=== PATIENT | male | born 1985 | race Caucasian/White ===

== ENCOUNTER 2016-09-19 02:21 | Emergency (ER) | payer BC, OTHER ==
[2016-09-19 02:22] VITALS: BMI 37.3
[2016-09-19 02:39] VITALS: TEMP 97.8; O2SAT 99
--- NOTE | 2016-09-19 02:50 | ED PDOC ---
Arrival/HPI - General Chief Complaint: Back Pain Time Seen by Provider: 09/19/16 02:32 Historian: Patient - History of Present Illness Narrative History of Present Illness (Text): 09/19/16 02:41 Aren Mccarthy is a 29 year old male, whose past medical history includes hypertension, who presents to the ED complaining of left lower back pain since yesterday. Patient states he slipped while carrying boxes at work yesterday afternoon. Patient states he did not fall but reports he felt a "pulling" sensation in his left lower back. Patient now complaining of pain to left lower back. Patient denies any weakness/numbness/tingling in the extremities, saddle paresthesias, urinary/bowel incontinence, nausea, vomiting, headache, or any other complaints. Time/Duration: Other (yesterday afternoon) Symptom Onset: Sudden Symptom Course: Unchanged Quality: Other (Pulling) Activities at Onset: Rest, Light Context: Home Past Medical History - Provider Review Nursing Documentation Reviewed: Yes - Infectious Disease Hx of Infectious Diseases: None - Tetanus Immunization Tetanus Immunization: Unknown - Cardiac Hx Cardiac Disorders: Yes Hx Hypertension: Yes - Pulmonary Hx Respiratory Disorders: No - Neurological Hx Neurological Disorder: No - HEENT Hx HEENT Disorder: No - Renal Hx Renal Disorder: No - Endocrine/Metabolic Hx Endocrine Disorders: No - Hematological/Oncological Hx Blood Disorders: No - Integumentary Hx Dermatological Disorder: No - Musculoskeletal/Rheumatological Hx Musculoskeletal Disorders: No Hx Falls: No - Gastrointestinal Hx Gastrointestinal Disorders: No - Genitourinary/Gynecological Hx Genitourinary Disorders: No - Psychiatric Hx Psychophysiologic Disorder: No Hx Depression: No Hx Emotional Abuse: No Hx Physical Abuse: No Hx Substance Use: No - Suicidal Assessment Feels Threatened In Home Enviroment: No Family/Social History - Physician Review Nursing Documentation Reviewed: Yes Family/Social History: Unknown Family HX Smoking Status: Never Smoked Hx Alcohol Use: No Hx Substance Use: No Hx Substance Use Treatment: No Allergies/Home Meds Allergies/Adverse Reactions: Allergies No Known Allergies Allergy (Verified 09/19/16 02:34) Home Medications: Home Meds Medication Instructions Recorded Confirmed Lisinopril/Hydrochlorothiazide 10 mg PO DAILY 09/02/15 09/19/16 [Lisinopril-Hctz 20-25 mg Tab] Review of Systems - Physician Review All systems were reviewed & negative as marked: Yes - Review of Systems Constitutional: Normal. absent: Fevers Eyes: Normal ENT: Normal Respiratory: Normal. absent: SOB, Cough Cardiovascular: Normal. absent: Chest Pain Gastrointestinal: Normal. absent: Abdominal Pain, Diarrhea, Nausea, Vomiting Genitourinary Male: Normal. absent: Dysuria, Frequency, Hematuria, Urinary Output Changes Musculoskeletal: Back Pain (+left lower back pain). absent: Neck Pain Skin: Normal. absent: Rash Neurological: Normal. absent: Headache, Dizziness Endocrine: Normal Hemo/Lymphatic: Normal Psychiatric: Normal Physical Exam Vital Signs Reviewed: Yes Vital Signs Temp Pulse Resp BP Pulse Ox 09/19/16 04:11 60 16 140/92 H 99 09/19/16 02:35 97.8 F 65 18 151/99 H 99 Temperature: Afebrile Blood Pressure: Normal Pulse: Regular Respiratory Rate: Normal Appearance: Positive for: Well-Appearing, Non-Toxic, Comfortable Pain Distress: None Mental Status: Positive for: Alert and Oriented X 3 - Systems Exam Head: Present: Atraumatic, Normocephalic Pupils: Present: PERRL Extroacular Muscles: Present: EOMI Conjunctiva: Present: Normal Mouth: Present: Moist Mucous Membranes Neck: Present: Normal Range of Motion Respiratory/Chest: Present: Clear to Auscultation, Good Air Exchange. No: Respiratory Distress, Accessory Muscle Use Cardiovascular: Present: Regular Rate and Rhythm, Normal S1, S2. No: Murmurs Abdomen: Present: Normal Bowel Sounds. No: Tenderness, Distention, Peritoneal Signs Back: Present: Paraspinal Tenderness (Mild left lumbar tenderness) Upper Extremity: Present: Normal Inspection. No: Cyanosis, Edema Lower Extremity: Present: Normal Inspection. No: Edema Neurological: Present: GCS=15, CN II-XII Intact, Speech Normal Skin: Present: Warm, Dry, Normal Color. No: Rashes Psychiatric: Present: Alert, Oriented x 3, Normal Insight, Normal Concentration Medical Decision Making ED Course and Treatment: 09/19/16 02:41 Impression: 30 year old male complaining of left lower back pain s/p injury yesterday. Differential Diagnosis included but are not limited to: muscle/lumbar strain vs. back pain Plan: -- Toradol -- Flexeril -- Reassess and disposition Prior Visits: Notes and results from previous visits were reviewed. On 09/02/2015, pt was seen in the Emergency department for chest pressure, shortness of breath, and headache. Pt was admitted to the hospital for further evaluation. Progress Notes: 09/19/16 03:50 On reevaluation the patient feels better and is in no acute distress. I have discussed the results and plan with the patient, who expresses understanding. Patient given the opportunity to ask question, all questions were answered and there is agreement with the plan to discharge the patient home. Patient is stable for discharge. Patient was instructed to follow up with physician/clinic in 1-2 days or return if symptoms persist/worsen or new concerning symptoms arise. - Medication Orders Current Medication Orders: Discontinued Medications Cyclobenzaprine HCl (Flexeril) 10 mg PO STAT STA Stop: 09/19/16 02:44 Last Admin: 09/19/16 02:57 Dose: 10 mg Ketorolac Tromethamine (Toradol) 30 mg IM ONCE ONE Stop: 09/19/16 02:44 Last Admin: 09/19/16 02:56 Dose: 30 mg - Scribe Statement The provider has reviewed the documentation as recorded by the Jessenia Auguste Provider Scribe Attestation: All medical record entries made by the Jayneibanastacio were at my direction and personally dictated by me. I have reviewed the chart and agree that the record accurately reflects my personal performance of the history, physical exam, medical decision making, and the department course for this patient. I have also personally directed, reviewed, and agree with the discharge instructions and disposition. Disposition/Present on Arrival - Present on Arrival Any Indicators Present on Arrival: No History of DVT/PE: No History of Uncontrolled Diabetes: No Urinary Catheter: No History of Decub. Ulcer: No History Surgical Site Infection Following: None - Disposition Have Diagnosis and Disposition been Completed?: Yes Diagnosis: Back pain Disposition: HOME/ ROUTINE Disposition Time: 03:50 Condition: GOOD Discharge Instructions (ExitCare): Back Pain (ED) Print Language: BULGARIAN Prescriptions: Cyclobenzaprine [Cyclobenzaprine HCl] 10 mg PO TID #21 tab Naproxen [Naprosyn Tab] 375 mg PO BID #12 tab Forms: [employer] (Liberian), WORK NOTE
[2016-09-19 04:11] VITALS: BP 140/92; PULSE 60; RESP 16
== END 2016-09-19 04:12 | disposition home or self-care (01) ==
LOC: ED 02:21
DX: M54.5 Low back pain (principal)
CPT/HCPCS: 96372; 99283; J1885